=== PATIENT | male | born 1950 | race Caucasian/White ===

== ENCOUNTER 2017-03-12 13:23 | Emergency (ER) | payer OTHER ==
[2017-03-12 13:41] VITALS: BP 152/83
--- NOTE | 2017-03-12 14:34 | ED ---
Skin Complaint - HPI Summary HPI Summary: 66 year old male presents with complains severe left leg pain with localized rash. - History of Current Complaint Chief Complaint: UCGeneralIllness Time Seen by Provider: 03/12/17 14:28 Stated Complaint: RESP COMPLAINT, FEVER - Allergy/Home Medications Allergies/Adverse Reactions: Allergies Allergy/AdvReac Type Severity Reaction Status Date / Time Codeine Allergy Unknown Verified 03/12/17 15:17 Reaction Details Morphine Allergy Unknown Verified 03/12/17 15:17 Reaction Details Sulfa Antibiotics Allergy See Comment Verified 03/12/17 15:17 Home Medications: Home Medications NK [No Home Medications Reported] 03/12/17 [History Confirmed 03/12/17] PMH/Surg Hx/FS Hx/Imm Hx Previously Healthy: Yes Endocrine/Hematology History: Denies: Hx Diabetes, Hx Thyroid Disease Cardiovascular History: Reports: Hx Hypertension - 03/2015 Denies: Hx Pacemaker/ICD Respiratory History: Denies: Hx Asthma, Hx Chronic Obstructive Pulmonary Disease (COPD) GI History: Denies: Hx Ulcer Sensory History: Reports: Hx Contacts or Glasses - GLASSES Denies: Hx Hearing Aid Opthamlomology History: Reports: Hx Contacts or Glasses - GLASSES Psychiatric History: Denies: Hx Panic Disorder - Surgical History Surgery Procedure, Year, and Place: rt knee MENISCUS repair 04/06/98 Hx Anesthesia Reactions: No Infectious Disease History: No Infectious Disease History: Denies: Hx Hepatitis, Hx Human Immunodeficiency Virus (HIV), History Other Infectious Disease, Traveled Outside the [place] in Last 30 Days - Social History Alcohol Use: Weekly Alcohol Amount: 2-3/WEEK Substance Use Type: Reports: None Smoking Status (MU): Never Smoked Tobacco Review of Systems Constitutional: Negative Eyes: Negative ENT: Negative Cardiovascular: Negative Respiratory: Negative Gastrointestinal: Negative Genitourinary: Negative Positive: Other - left leg pain Positive: Rash - left upper thigh All Other Systems Reviewed And Are Negative: Yes Physical Exam Triage Information Reviewed: Yes Vital Signs On Initial Exam: Initial Vitals Temp Pulse Resp BP Pulse Ox 36.4 C 109 18 152/83 99 03/12/17 13:38 03/12/17 13:38 03/12/17 13:38 03/12/17 13:38 03/12/17 13:38 Vital Signs Reviewed: Yes Skin: Positive: Other - rash left upper thigh Head/Face: Positive: Normal Head/Face Inspection Eyes: Positive: Normal ENT: Positive: Normal ENT inspection Neck: Positive: Supple Respiratory/Lung Sounds: Positive: Clear to Auscultation Diagnostics - Vital Signs Vital Signs Temp Pulse Resp BP Pulse Ox 03/12/17 13:38 36.4 C 109 18 152/83 99 - Laboratory Lab Statement: Any lab studies that have been ordered have been reviewed, and results considered in the medical decision making process. Course/Dx - Diagnoses Provider Diagnoses: Rash, Leg pain, left Discharge - Discharge Plan Condition: Stable Disposition: HOME Patient Education Materials: Fever in Adults (ED), Acute Rash (ED) Referrals: Tennille Corley MD [Primary Care Provider] -
--- NOTE | 2017-03-12 14:36 | UC ---
Respiratory Complaint HPI - History of Current Complaint Chief Complaint: UCGeneralIllness Stated Complaint: RESP COMPLAINT, FEVER Time Seen by Provider: 03/12/17 14:28 - Allergies/Home Medications Allergies/Adverse Reactions: Allergies Allergy/AdvReac Type Severity Reaction Status Date / Time Codeine Allergy Unknown Verified 03/12/17 13:42 Reaction Details Morphine Allergy Unknown Verified 03/12/17 13:42 Reaction Details Sulfa Antibiotics Allergy See Comment Verified 03/12/17 13:42 Home Medications: Home Medications NK [No Home Medications Reported] 03/12/17 [History Confirmed 03/12/17] PMH/Surg Hx/FS Hx/Imm Hx - Surgical History Surgical History: Yes Surgery Procedure, Year, and Place: rt knee MENISCUS repair 04/06/98 - Social History Alcohol Use: Weekly Alcohol Amount: 2-3/WEEK Substance Use Type: None Smoking Status (MU): Never Smoked Tobacco Physical Exam Vital Signs: Initial Vital Signs Temp 97.5 F 03/12/17 13:38 Pulse 109 03/12/17 13:38 Resp 18 03/12/17 13:38 BP 152/83 03/12/17 13:38 Pulse Ox 99 03/12/17 13:38 UC Diagnostic Evaluation - Laboratory O2 Sat by Pulse Oximetry: 99
== END 2017-03-12 14:43 | disposition home or self-care (01) ==
LOC: UCEAST 13:23
DX: R21 Rash and other nonspecific skin eruption (principal); M79.605 Pain in left leg; Z88.5 Allergy status to narcotic agent; Z88.2 Allergy status to sulfonamides
CPT/HCPCS: 99211; G0463

== ENCOUNTER 2017-03-12 15:13 | Emergency (ER) | payer OTHER ==
[2017-03-12] MEDS ORDERED: cefTRIAXone(*) 1 GM in NS 0.9% 50 ML* 50 ML IVPB ONE (15:55)
[2017-03-12 16:43] LABS: Hematocrit 47 % (42-52); Mean Corpuscular HGB Conc 34 g/dl (31-36); Mean Corpuscular Hemoglobin 29 pg (27-31); Mean Corpuscular Volume 86 fL (80-94); Mean Platelet Volume 9 um3 (7.4-10.4); Red Blood Count 5.49 10^6/ul (4.0-5.4); Red Cell Distribution Width 14 % (10.5-15); White Blood Count 6.4 10^3/ul (3.5-10.8)
--- NOTE | 2017-03-12 16:44 | RAD ---
Indication: Left leg pain. Duplex Doppler sonography of the deep venous system of the left lower extremity deep venous system was performed. Bilaterally the common femoral veins appear patent and compressible. Left proximal greater saphenous vein, proximal deep femoral vein, femoral vein, popliteal vein, posterior tibial veins and peroneal veins appear patent and compressible. Varicosities are noted in the left thigh however no evidence of superficial venous thrombosis is noted. IMPRESSION: NO EVIDENCE OF DEEP VENOUS THROMBOSIS IS IDENTIFIED.
[2017-03-12] MEDS: NS 0.9% 1000 ML* 2,000 ML IV ONE (16:50)
[2017-03-12 16:56] LABS: Albumin 4.2 g/dL (3.2-5.2); C Reactive Protein 103.46 mg/L (< 5.00); Calcium 9.3 mg/dL (8.6-10.3); EGFR African American 55.1 (>60); EGFR Non-African American 42.8 (>60); Globulin 3.6 g/dL (2-4); Total Bilirubin 0.5 mg/dL (0.2-1.0); Total Protein 7.8 g/dL (6.4-8.9)
[2017-03-12] MEDS ORDERED: DOXYcycline CAP(*) 100 MG PO ONE (17:26)
--- NOTE | 2017-03-12 17:31 | ED ---
Sergo Garcia Benjamin, scribed for Rito Nelson MD on 03/12/17 at 1604 . Skin Complaint - HPI Summary HPI Summary: 66yo male presents to ED with a red rash on his left inner thigh and fever. Last Saturday, pt had a mild GASTELUM, that has gotten worse on Saturday, and pt also started to have a fever of 101F with body aches. Pt also noticed a small red spot on his left inner thigh. Saturday, GASTELUM and body ache have gotten worse, his temp chris to 104.7F, and his red rash started to enlarge in size. Symptoms seemed to resolve on Saturday and yesterday. Pt no longer reports GASTELUM, fever, or body aches, but pt still reports a rash, which has been continuously been getting larger since its onset. Pt went to earlier today, and was sent to ED for further evaluation for his rash, also to R/O Lyme disease. Pt doesnt recall or noticed any tick bites in the area. - History of Current Complaint Chief Complaint: EDSoftTissueLowExtr Time Seen by Provider: 03/12/17 15:46 Stated Complaint: [facility] Hx Obtained From: Patient Onset/Duration: Started Days Ago - 4 days ago, Still Present Skin Exposure Onset/Duration: Worse Since: - rash has been progressively enlargening Timing: Constant Onset Severity: Mild Current Severity: Mild Pain Intensity: 4 Pain Scale Used: 0-10 Numeric Skin Location: Leg - left inner thigh Aggravating Symptom(s): Nothing Alleviating Symptom(s): Nothing Associated Signs & Symptoms: Fever, Rash - Lt inner thigh - Allergy/Home Medications Allergies/Adverse Reactions: Allergies Allergy/AdvReac Type Severity Reaction Status Date / Time Codeine Allergy Unknown Verified 03/12/17 15:17 Reaction Details Morphine Allergy Unknown Verified 03/12/17 15:17 Reaction Details Sulfa Antibiotics Allergy See Comment Verified 03/12/17 15:17 PMH/Surg Hx/FS Hx/Imm Hx Endocrine/Hematology History: Denies: Hx Diabetes, Hx Thyroid Disease Cardiovascular History: Reports: Hx Hypertension - 03/2015 Denies: Hx Pacemaker/ICD Respiratory History: Denies: Hx Asthma, Hx Chronic Obstructive Pulmonary Disease (COPD) GI History: Denies: Hx Ulcer Sensory History: Reports: Hx Contacts or Glasses - GLASSES Denies: Hx Hearing Aid Opthamlomology History: Reports: Hx Contacts or Glasses - GLASSES Psychiatric History: Denies: Hx Panic Disorder - Surgical History Surgery Procedure, Year, and Place: rt knee MENISCUS repair 04/06/98 Hx Anesthesia Reactions: No Infectious Disease History: No Infectious Disease History: Denies: Hx Hepatitis, Hx Human Immunodeficiency Virus (HIV), History Other Infectious Disease, Traveled Outside the [place] in Last 30 Days - Family History Known Family History: Positive: Hypertension - Social History Occupation: Employed Full-time Lives: Alone Alcohol Use: Weekly Alcohol Amount: 2-3/WEEK Substance Use Type: Reports: None Smoking Status (MU): Never Smoked Tobacco Review of Systems Positive: Fever Eyes: Negative ENT: Negative Cardiovascular: Negative Respiratory: Negative Gastrointestinal: Negative Genitourinary: Negative Positive: Myalgia - body ache Positive: Rash - red rash 14x7cm Positive: Headache Psychological: Normal All Other Systems Reviewed And Are Negative: Yes Physical Exam Triage Information Reviewed: Yes Vital Signs On Initial Exam: Initial Vitals Temp Pulse Resp BP Pulse Ox 97.8 F 104 16 138/91 100 03/12/17 15:17 03/12/17 15:17 03/12/17 15:17 03/12/17 15:17 03/12/17 15:17 Vital Signs Reviewed: Yes Appearance: Positive: Well-Appearing, No Pain Distress, Well-Nourished Skin: Positive: Warm, Skin Color Reflects Adequate Perfusion, Dry, Other - 14x7cm red rash on left inner thigh Eyes: Positive: EOMI, NICOLE, Conjunctiva Clear ENT: Positive: Normal ENT inspection Neck: Positive: Supple, Nontender Respiratory/Lung Sounds: Positive: Clear to Auscultation, Breath Sounds Present Cardiovascular: Positive: Tachycardia Abdomen Description: Positive: Nontender, Soft Bowel Sounds: Positive: Present Musculoskeletal: Positive: Strength/ROM Intact Neurological: Positive: Sensory/Motor Intact, Alert, Oriented to Person Place, Time, CN Intact II-III Psychiatric: Positive: Affect/Mood Appropriate - Iesha Coma Scale Coma Scale Total: 15 Diagnostics - Vital Signs Vital Signs Temp Pulse Resp BP Pulse Ox 03/12/17 15:45 97.8 F 104 16 138/91 100 03/12/17 15:17 97.8 F 104 16 138/91 100 - Laboratory Lab Results: Lab Results 03/12/17 03/12/17 03/12/17 Range/Units 16:36 16:36 16:36 WBC 6.4 (3.5-10.8) 10^3/ul RBC 5.49 H (4.0-5.4) 10^6/ul Hgb 16.0 (14.0-18.0) g/dl Hct 47 (42-52) % MCV 86 (80-94) fL MCH 29 (27-31) pg MCHC 34 (31-36) g/dl RDW 14 (10.5-15) % Plt Count 119 L (150-450) 10^3/ul MPV 9 (7.4-10.4) um3 Neut % (Auto) 73.9 (38-83) % Lymph % (Auto) 16.4 L (25-47) % [place] % (Auto) 8.9 (1-9) % Eos % (Auto) 0.1 (0-6) % Baso % (Auto) 0.7 (0-2) % Absolute Neuts (auto) 4.8 (1.5-7.7) 10^3/ul Absolute Lymphs (auto) 1.1 (1.0-4.8) 10^3/ul Absolute Monos (auto) 0.6 (0-0.8) 10^3/ul Absolute Eos (auto) 0 (0-0.6) 10^3/ul Absolute Basos (auto) 0 (0-0.2) 10^3/ul Absolute Nucleated RBC 0.01 10^3/ul Nucleated RBC % 0.1 INR (Anticoag Therapy) 1.00 (0.89-1.11) APTT 26.4 (26.0-36.3) seconds Sodium 136 (133-145) mmol/L Potassium 3.0 L (3.5-5.0) mmol/L Chloride 97 L (101-111) mmol/L Carbon Dioxide 27 (22-32) mmol/L Anion Gap 12 H (2-11) mmol/L BUN 26 H (6-24) mg/dL Creatinine 1.62 H (0.67-1.17) mg/dL Est GFR ( Amer) 55.1 (>60) Est GFR (Non-Af Amer) 42.8 (>60) BUN/Creatinine Ratio 16.0 (8-20) Glucose 103 H (70-100) mg/dL Lactic Acid (0.5-2.0) mmol/L Calcium 9.3 (8.6-10.3) mg/dL Total Bilirubin 0.50 (0.2-1.0) mg/dL AST 38 (13-39) U/L ALT 46 (7-52) U/L Alkaline Phosphatase 66 (34-104) U/L C-Reactive Protein 103.46 H (< 5.00) mg/L Total Protein 7.8 (6.4-8.9) g/dL Albumin 4.2 (3.2-5.2) g/dL Globulin 3.6 (2-4) g/dL Albumin/Globulin Ratio 1.2 (1-3) /03/21 Range/Units 16:36 WBC (3.5-10.8) 10^3/ul RBC (4.0-5.4) 10^6/ul Hgb (14.0-18.0) g/dl Hct (42-52) % MCV (80-94) fL MCH (27-31) pg MCHC (31-36) g/dl RDW (10.5-15) % Plt Count (150-450) 10^3/ul MPV (7.4-10.4) um3 Neut % (Auto) (38-83) % Lymph % (Auto) (25-47) % [place] % (Auto) (1-9) % Eos % (Auto) (0-6) % Baso % (Auto) (0-2) % Absolute Neuts (auto) (1.5-7.7) 10^3/ul Absolute Lymphs (auto) (1.0-4.8) 10^3/ul Absolute Monos (auto) (0-0.8) 10^3/ul Absolute Eos (auto) (0-0.6) 10^3/ul Absolute Basos (auto) (0-0.2) 10^3/ul Absolute Nucleated RBC 10^3/ul Nucleated RBC % INR (Anticoag Therapy) (0.89-1.11) APTT (26.0-36.3) seconds Sodium (133-145) mmol/L Potassium (3.5-5.0) mmol/L Chloride (101-111) mmol/L Carbon Dioxide (22-32) mmol/L Anion Gap (2-11) mmol/L BUN (6-24) mg/dL Creatinine (0.67-1.17) mg/dL Est GFR ( Amer) (>60) Est GFR (Non-Af Amer) (>60) BUN/Creatinine Ratio (8-20) Glucose (70-100) mg/dL Lactic Acid 1.7 (0.5-2.0) mmol/L Calcium (8.6-10.3) mg/dL Total Bilirubin (0.2-1.0) mg/dL AST (13-39) U/L ALT (7-52) U/L Alkaline Phosphatase (34-104) U/L C-Reactive Protein (< 5.00) mg/L Total Protein (6.4-8.9) g/dL Albumin (3.2-5.2) g/dL Globulin (2-4) g/dL Albumin/Globulin Ratio (1-3) Result Diagrams: 03/12/17 16:36 03/12/17 16:36 Lab Statement: Any lab studies that have been ordered have been reviewed, and results considered in the medical decision making process. Course/Dx - Course Course Of Treatment: Reviewed pts medication and allergy lists. WELL IN ED. DISCUSSED RESULTS WITH PATIENT. WILL TREAT LYME. LYME TITER PENDING. F/U WITH PMD/RETURN IF WORSE. - Diagnoses Provider Diagnoses: Lyme disease, Fever Discharge - Discharge Plan Condition: Stable Disposition: HOME Prescriptions: DOXYcycline CAP(*) [DOXYcycline 100MG CAP(*)] 100 mg PO BID #41 cap Patient Education Materials: Lyme Disease (ED), Fever in Adults (ED) Referrals: Tennille Corley MD [Primary Care Provider] - Additional Instructions: FOLLOW UP WITH YOUR DOCTOR. RETURN TO THE EMERGENCY DEPARTMENT FOR ANY WORSENING OF YOUR CONDITION; HEADACHE /NECK PAIN, YOU FEEL ILL, THE RASH SPREADS OR QUESTIONS OR CONCERNS. The documentation as recorded by the Sergo lyons Benjamin accurately reflects the service I personally performed and the decisions made by me, Rito Nelson MD.
[2017-03-12 19:23] VITALS: BP 161/83
[2017-03-15 14:58] LABS: Lyme Disease IgG Ab WB Negative (Negative)
== END 2017-03-12 19:25 | disposition home or self-care (01) ==
LOC: ED 15:13
DX: A69.20 Lyme disease, unspecified (principal); R50.9 Fever, unspecified; R21 Rash and other nonspecific skin eruption; R51 Headache
CPT/HCPCS: 36415; 80053; 83605; 85025; 85610; 85730; 86140; 86617; 86618; 87040; 96360; 99282; A9270-GY; J0696

== ENCOUNTER 2018-04-02 14:46 | Emergency (ER) | payer OTHER ==
[2018-04-02 15:04] VITALS: BP 145/84
--- NOTE | 2018-04-02 15:47 | UC ---
Lower Extremity/Ankle HPI - HPI Summary HPI Summary: STEPPED OFF A CURB WHILE AT WORK AND TWISTED LEFT ANKLE. IS ABLE TO WALK WITHOUT PAIN BUT THEN HE WILL INTERMITTENTLY GET SHARP PAIN LATERALLY. NO SWELLING. NO NUMBNESS/TINGLING. - History of Current Complaint Chief Complaint: UCLowerExtremity Stated Complaint: ANKLE INJURY WC Time Seen by Provider: 04/02/18 15:12 Hx Obtained From: Patient Onset/Duration: Sudden Onset, Lasting Days - 1 DAY, Still Present Severity Initially: Moderate Severity Currently: Mild Pain Intensity: 0 Pain Scale Used: 0-10 Numeric Able to Bear Weight: Yes - Allergies/Home Medications Allergies/Adverse Reactions: Allergies Allergy/AdvReac Type Severity Reaction Status Date / Time codeine Allergy Dizziness Verified 04/02/18 15:05 morphine Allergy Dizziness Verified 04/02/18 15:05 Sulfa (Sulfonamide Allergy See Comment Verified 04/02/18 15:06 Antibiotics) Home Medications: Home Medications Aspirin [Aspir-Low] 1 tab PO DAILY 04/02/18 [History Confirmed 04/02/18] Lisinopril/HCTZ 20/25(NF) [Zestoretic 20/25(NF)] 1 tab PO DAILY 04/02/18 [ History Confirmed 04/02/18] Multivitamin [Multiple Vitamins] 1 tab PO DAILY 04/02/18 [History Confirmed ] PMH/Surg Hx/FS Hx/Imm Hx Cardiovascular History: Hypertension - Surgical History Surgical History: Yes Surgery Procedure, Year, and Place: Right knee MENISCUS repair 04/06/982014 - Family History Known Family History: Positive: Hypertension - Social History Alcohol Use: Occasionally Alcohol Amount: 2-3/WEEK Substance Use Type: None Smoking Status (MU): Never Smoked Tobacco Review of Systems Constitutional: Negative Skin: Negative Respiratory: Negative Cardiovascular: Negative Gastrointestinal: Negative Musculoskeletal: Arthralgia All Other Systems Reviewed And Are Negative: Yes Physical Exam Triage Information Reviewed: Yes Appearance: Well-Appearing, No Pain Distress, Well-Nourished Vital Signs: Initial Vital Signs Temp 97.9 F 04/02/18 15:01 Pulse 90 04/02/18 15:01 Resp 18 04/02/18 15:01 BP 145/84 04/02/18 15:01 Pulse Ox 99 04/02/18 15:01 Vital Signs Reviewed: Yes Eyes: Positive: Conjunctiva Clear ENT: Positive: Hearing grossly normal Neck: Positive: Supple Respiratory: Positive: No respiratory distress, No accessory muscle use Cardiovascular: Positive: Pulses Normal Abdomen Description: Positive: Soft Musculoskeletal: Positive: ROM Intact, No Edema, Other: - MINIMALLY TENDER LEFT ANKLE JUST DISTAL TO LATERAL MALLEOLUS Neurological: Positive: Alert Psychological: Positive: Age Appropriate Behavior Skin: Negative: rashes Lower Extremity Course/Dx - Course Course Of Treatment: PT WITH MINIMAL TENDERNESS, NO SWELLING, ABLE TO WALK WITHOUT DIFFICULTY. NO XRAY INDICATED. DI, GEL SPLINT. REST, ICE, COMPRESS, ELEVATE. F/U PCP OR ORTHO IF NEEDED. - Differential Dx/Diagnosis Provider Diagnoses: LEFT ANKLE SPRAIN Discharge - Sign-Out/Discharge Documenting (check all that apply): Patient Departure All imaging exams completed and their final reports reviewed: No Studies - Discharge Plan Condition: Stable Disposition: HOME Patient Education Materials: Ankle Sprain (ED) Forms: *Work Release Referrals: Darrell Henley MD [Medical Doctor] - If Needed Tennille Corley MD [Primary Care Provider] - If Needed Additional Instructions: YOUR SYMPTOMS SHOULD IMPROVE SIGNIFICANTLY OVER THE NEXT 1-2 WEEKS. IF YOU DO NOT IMPROVE EXPECTED FOLLOW-UP WITH YOUR PCP OR ORTHO. YOU MAY BENEFIT FROM IMAGING AT THAT TIME. REST. ICE, COMPRESS, ELEVATE. OTC IBUPROFEN OR ALEVE NEEDED FOR DISCOMFORT. - Billing Disposition and Condition Condition: STABLE Disposition: Home
== END 2018-04-02 15:36 | disposition home or self-care (01) ==
LOC: UCEAST 14:46
DX: S93.402A Sprain of unspecified ligament of left ankle, initial encounter (principal); I10 Essential (primary) hypertension; Z88.5 Allergy status to narcotic agent; Z88.2 Allergy status to sulfonamides; Z79.82 Long term (current) use of aspirin; Z79.899 Other long term (current) drug therapy; X50.9XXA Other and unspecified overexertion or strenuous movements or postures, initial encounter; Y92.9 Unspecified place or not applicable
CPT/HCPCS: 99213; G0463

== ENCOUNTER 2023-01-18 08:56 | Observation (INO) ==
[~2023-01-18 08:56] MED LIST: Acetaminophen IV 1 GM/100ML 1,000 MG/100 ML BAG IV ONE; Buffered Lidocaine 1% SYRIN 1 ml INTRADERM ONE; Bupivacaine 0.5% PF 10 ML SDV VIAL INJ ONE; Dexamethasone IV 4 MG/ML VIAL 1 ml VIAL ONE; Lactated Ringers 1000 ml BAG 1,000 ML IV SCH; Lidocaine 2% PF 5 ML VIAL ONE; Midazolam 5 mg/5 ml VIAL 1 mg/ml 5 ml VIAL (5 mg) ONE; Ondansetron 4 mg VIAL 2 MG/ML 2 ml VIAL ONE; Phenylephrine 40 mcg/mL 10mL (400mcg) SYRINGE ONE; Phenylephrine IV 10 MG/ML 1 ml VIAL ONE; Propofol 10 mg/ml 100 ML BTL 0 MG/0 ML BTL ONE; Sterile Water for Inj 10 ML ONE; fentaNYL 100 mcg/2 ml 50 MCG/ML VIAL ONE
[2023-01-18] MEDS ORDERED: ceFAZolin 2 GM in NS PREMIX 2 GM/100 ML BAG IVPB ONE (09:32)
[2023-01-18 09:55] LABS: Rapid COVID-19 Molecular Undetected (Undetected)
[2023-01-18] MEDS ORDERED: Rocuronium 50 mg VIAL 10 mg/ml 5 ml VIAL (50 mg) ONE ×2 (10:52→12:51)
[2023-01-18] MEDS ORDERED: Propofol 10 MG/ML 20 ML BTL ONE (10:53)
[2023-01-18] MEDS ORDERED: ROPIVACAINE 5 MG/ML 30 ML BTL (0.5%) ONE (11:44)
[2023-01-18] MEDS ORDERED: Glycopyrrolate IV 0.2 MG/ML 1 ML VIAL ONE (12:27)
[2023-01-18] MEDS ORDERED: Ketamine HCL 50 mg/ml 10 ml VIAL (500 MG) ONE (12:27)
[2023-01-18] MEDS ORDERED: Atropine 1 MG/ML INJ 1 ML VIAL ONE (12:28)
[2023-01-18] MEDS ORDERED: Dexamethasone IV 4 MG/ML VIAL 1 ml VIAL ONE (12:30)
[2023-01-18] MEDS ORDERED: fentaNYL 100 mcg/2 ml 50 MCG/ML VIAL ONE ×3 (13:18→15:35)
[2023-01-18] MEDS ORDERED: Ondansetron ODT 4 mg TAB 4 MG TAB PO PRN (15:01)
[2023-01-18] MEDS ORDERED: Ondansetron 4 mg VIAL 2 MG/ML 2 ml VIAL IV PRN ×2 (15:01→15:19)
[2023-01-18] MEDS ORDERED: Lactulose 30 ml UDC PO PRN (15:01)
[2023-01-18] MEDS ORDERED: Magnesium Hydroxide LIQ 30 ML UDC PO PRN (15:01)
[2023-01-18] MEDS ORDERED: Naloxone 0.4 mg VIAL 0.4 mg/ml 1 ml VIAL IV PRN (15:19)
[2023-01-18] MEDS: fentaNYL 100 mcg/2 ml 50 MCG/ML VIAL IV PRN ×4 (15:26→16:08)
[2023-01-18] MEDS: Lactated Ringers 1000 ml BAG 1,000 ML IV SCH (17:45)
[2023-01-18] MEDS: ceFAZolin 1 GM ADVAN 1 GM in NS 0.9% 50 ML 50 ML IVPB SCH (20:10)
[2023-01-18] MEDS: Magnesium Hydroxide LIQ 30 ML UDC PO SCH (20:10)
[2023-01-19] MEDS: Lactated Ringers 1000 ml BAG 1,000 ML IV SCH (04:09)
[2023-01-19] MEDS: ceFAZolin 1 GM ADVAN 1 GM in NS 0.9% 50 ML 50 ML IVPB SCH ×2 (04:11→12:05)
[2023-01-19 06:24] LABS: Hemoglobin 10.5 g/dL (13.2-16.3); Mean Platelet Volume 9.2 fL (7.5-11.2); Platelet Count 120 10^3/uL (150-450)
[2023-01-19 06:40] LABS: Calcium 8.3 mg/dL (8.6-10.3); Creatinine, Serum 1.16 mg/dL (0.67-1.17); Potassium 4.2 mmol/L (3.5-5.0); eGFR CKD-EPI 66.9 (>60)
[2023-01-19] MEDS: Magnesium Hydroxide LIQ 30 ML UDC PO SCH (08:15)
[2023-01-19] MEDS ORDERED: Vitamin THERAPEUTIC TAB PO SCH (09:00)
[2023-01-19 10:41] VITALS: BP 132/64
== END 2023-01-19 13:00 | disposition home or self-care (01) ==
LOC: INTOOBSV 08:56 → AA 08:56 → SSU 15:03
PROVIDERS: ADMIT Orthopaedic Surgery Adult Reconstructive Orthopaedic Surgery; ATTEND Orthopaedic Surgery Adult Reconstructive Orthopaedic Surgery